=== PATIENT | female | born 1950 | race Caucasian/White ===

== ENCOUNTER 2019-04-11 07:26 | Day surgery (SDC) | payer MEDICARE, BC ==
[2019-04-11] MEDS ORDERED: PROPOFOL 10 MG/ML VIAL IV ONE (07:27)
[2019-04-11] MEDS ORDERED: LIDOCAINE 2% MDV (20MG/ML) 20ML VIAL IV ONE (07:27)
--- NOTE | 2019-04-11 14:10 | Operative Note ---
OPERATION: COLONOSCOPY. PREOPERATIVE DIAGNOSIS: Personal history of colon polyps. POSTOPERATIVE DIAGNOSIS: Sigmoid diverticulosis. PREPARATION QUALITY: Good. ESTIMATED BLOOD LOSS: None. SPECIMENS: None. COMPLICATIONS: None apparent. PROCEDURE: After informed consent was obtained from the patient, she was placed in the left lateral decubitus position in the endoscopy suite, sedated and monitored by the department of anesthesia. Digital rectal examination was unremarkable. A well-lubricated SS461M colonoscope was inserted into the rectum and advanced to the cecum. The cecum, cecal bulb, ileocecal valve, appendiceal orifice, ascending colon, transverse colon, and descending colon were free of inflammatory changes, mass lesions, or polyps. The sigmoid colon revealed scattered diverticula. The rectum was unremarkable in forward and J-turn views. The endoscope was straightened, the rectal ampulla deflated, and the endoscope was removed. RECOMMENDATIONS: I would suggest the patient follow a high-fiber diet. She should undergo repeat exam in 5 years. As always, thank you for allowing me to participate in the healthcare of your patients. FELICIA
== END 2019-04-11 09:22 | disposition home or self-care (01) ==
LOC: HOP 07:26
PROVIDERS: ATTEND Internal Medicine Gastroenterology
DX: Z12.11 Encounter for screening for malignant neoplasm of colon (principal); Z86.010 Personal history of colon polyps; K57.30 Diverticulosis of large intestine without perforation or abscess without bleeding; I10 Essential (primary) hypertension; M06.9 Rheumatoid arthritis, unspecified; M19.90 Unspecified osteoarthritis, unspecified site
CPT/HCPCS: 00812; G0105